=== PATIENT | female | born 2000 | race Caucasian/White ===

== ENCOUNTER 2023-12-03 23:17 | Emergency (ER) | payer OTHER ==
[2023-12-03 23:26] VITALS: BP 118/82; PULSE 85; RESP 17; TEMP 98.6; BMI 26.6
[2023-12-03] MEDS ORDERED: FAMOTIDINE 20 MG/50 ML IVPB 20 MG/50 ML MG IVPB ONE (23:49)
[2023-12-03] MEDS ORDERED: ONDANSETRON 4 MG/2 ML VIAL ONE (23:49)
[2023-12-04] MEDS: SODIUM CHLORIDE 1,000 ML IV STA (00:28)
[2023-12-04] MEDS: ONDANSETRON 4 MG/2 ML VIAL IVPUSH ONE (00:29)
[2023-12-04] MEDS: FAMOTIDINE 20 MG/50 ML IVPB 20 MG/50 ML MG IVPB ONE (00:29)
[2023-12-04 00:54] LABS: POTASSIUM 3.6 mmol/L (3.5-5.1)
[2023-12-04 00:56] LABS: ALBUMIN 3.8 g/dl (3.4-5.0); CALCIUM 9.2 mg/dL (8.5-10.1)
[2023-12-04 00:59] LABS: CREATININE 0.7 mg/dL (0.55-1.3)
[2023-12-04 01:01] LABS: BILIRUBIN,TOTAL 0.8 mg/dL (0.2-1); TOT PROT 7.1 g/dl (6.4-8.2)
[2023-12-04] MEDS ORDERED: ONDANSETRON 4 MG/2 ML VIAL ONE (01:02)
[2023-12-04] MEDS: ONDANSETRON 4 MG/2 ML VIAL IVPB ONE (01:12)
[2023-12-04 01:35] LABS: BASO % 0.5 % (0-2.0); EOS % 4.4 % (0-4.5); HEMOGLOBIN 13.7 GM/dL (10.7-15.3); LYMPH % 34.7 % (8-40); MCH 30.6 pg (25.7-33.7); MCHC 34.4 g/dl (32.0-36.0); MEAN CELL VOLUME 89.2 fl (80-96); MEAN PLT VOLUME 10.2 fl (7.5-11.1); MONO % 6.7 % (3.8-10.2); NEUT % 53.7 % (42.8-82.8); PLATELET COUNT 286 10^3/uL (134-434); RBC 4.48 M/mm3 (3.60-5.2); RDW 13.8 % (11.6-15.6); WHITE BLOOD COUNT 7.4 K/mm3 (4.0-10.0)
== END 2023-12-04 02:00 | disposition home or self-care (01) ==
LOC: FER 23:17
PROC: 3E033GC Introduction of Other Therapeutic Substance into Peripheral Vein, Percutaneous Approach (ICD-10-PCS; principal; 2023-12-04)
PROC: 3E033GC Introduction of Other Therapeutic Substance into Peripheral Vein, Percutaneous Approach (ICD-10-PCS; 2023-12-04)
PROC: 3E033GC Introduction of Other Therapeutic Substance into Peripheral Vein, Percutaneous Approach (ICD-10-PCS; 2023-12-04)
DX: K52.9 Noninfective gastroenteritis and colitis, unspecified (principal); R11.2 Nausea with vomiting, unspecified; R10.13 Epigastric pain
CPT/HCPCS: 36415; 80053; 83690; 85025; 99284-25

== ENCOUNTER 2023-12-08 13:54 | Emergency (ER) | payer OTHER ==
[2023-12-08 14:01] VITALS: BMI 26.6
[2023-12-08 14:08] VITALS: BP 102/67; PULSE 88; RESP 16; TEMP 98.4
== END 2023-12-08 15:32 | disposition home or self-care (01) ==
LOC: FER 13:54
DX: R10.84 Generalized abdominal pain (principal); R11.2 Nausea with vomiting, unspecified
CPT/HCPCS: 84703; 99283-25